=== PATIENT | female | born 1970 | race Caucasian/White ===

== ENCOUNTER 2017-05-03 21:28 | Emergency (ER) | payer MEDICAID ==
[~2017-05-03] VITALS: Ht 165.1 cm; Wt 104.3 kg
[2017-05-03 21:30] VITALS: BP_SYST 163
[2017-05-03] MEDS ORDERED: IPRATROPIUM/ALBUTEROL SULFATE 3 ML AMPUL.NEB INH ONE (21:45)
[2017-05-03] MEDS ORDERED: ONDANSETRON HCL 4 MG/2 ML VIAL IVP ONE (21:45)
[2017-05-03] MEDS ORDERED: NACL 0.9% 1,000 ML IV ONE (21:45)
[2017-05-03 22:28] LABS: BASOPHILS % (AUTO) 0.3 % (0.0-2.0); EOSINOPHILS # (AUTO) 0.2 K/uL (0.0-0.4); EOSINOPHILS % (AUTO) 1.5 % (0.0-4.0); HEMATOCRIT 36.6 % (36-48); HEMOGLOBIN 12.1 g/dL (12.0-16.0); LYMPHOCYTES # (AUTO) 1.7 K/uL (1.0-5.5); LYMPHOCYTES % (AUTO) 14.9 % (20.5-51.5); MEAN CORPUSCULAR HEMOGLOBIN 29 pg (27-31); MEAN CORPUSCULAR HGB CONC 33 % (32-36); MEAN CORPUSCULAR VOLUME 87 fL (79.0-98.0); MONOCYTES # (AUTO) 0.7 K/uL (0.0-1.0); MONOCYTES % (AUTO) 6.5 % (1.7-9.3); NEUTROPHILS # (AUTO) 8.6 K/uL (1.8-7.7); NEUTROPHILS % (AUTO) 76.8 % (40.0-70.0); PLATELET COUNT (AUTO) 188 K/uL (130-430); RED BLOOD CELL COUNT(AUTO) 4.23 MIL/uL (4.2-6.2); RED CELL DISTRIBUTION WIDTH 13.2 % (9.0-15.0); WHITE BLOOD COUNT (AUTO) 11.2 K/uL (4.8-10.8)
[2017-05-03 22:37] LABS: CALCIUM 9.1 mg/dL (8.4-11.0); CREATININE 0.98 mg/dL (0.55-1.30); POTASSIUM 3.5 mmol/L (3.5-5.1)
[2017-05-03 22:42] LABS: ALBUMIN 3.1 g/dL (3.4-4.8); TOTAL BILIRUBIN 0.4 mg/dL (0.0-1.0)
[2017-05-03] MEDS ORDERED: KETOROLAC TROMETHAMINE 30 MG VIAL IVP ONE (23:15)
[2017-05-03] MEDS ORDERED: AZITHROMYCIN 250 MG TABLET PO ONE (23:15)
[2017-05-04] VITALS: BP_SYST 148
== END 2017-05-04 | disposition home or self-care (01) ==
LOC: SED 21:28
DX: J18.9 Pneumonia, unspecified organism (principal); E86.0 Dehydration; R53.1 Weakness; Z87.891 Personal history of nicotine dependence
CPT/HCPCS: 36415; 71010; 80053; 83880; 85025; 93005; 94640; 96361; 96374; 96375; 99285; J1885; J2405; J7030; Q0144

== ENCOUNTER 2017-05-11 09:09 | Emergency (ER) | payer MEDICAID ==
[~2017-05-11] VITALS: Ht 165.1 cm; Wt 104.3 kg
[2017-05-11 09:09] VITALS: BP 157/111; PULSE 98; RESP 14; TEMP 97.7; O2SAT 96
--- NOTE | 2017-05-11 09:17 | NUR ---
Pt BIB BLS, placed to ER bed 04, to night monitor. Pt c/o Right rib pain and left chest pain that radiates to Left back. BBS rhonchi, no SOB. SPO2 96% RA. Pt seen in ER on 05/03/2017 and Dx Pneumonia. Pt currently taking Zithromax.
[2017-05-11 10:17] LABS: CREATININE 1.01 mg/dL (0.55-1.30); POTASSIUM 3.8 mmol/L (3.5-5.1)
[2017-05-11 10:19] LABS: PROTHROMBIN TIME 10.2 SECS (9.5-12.5)
[2017-05-11 10:20] LABS: BASOPHILS # (AUTO) 0.1 K/uL (0.0-0.2); BASOPHILS % (AUTO) 0.3 % (0.0-2.0); EOSINOPHILS # (AUTO) 0.2 K/uL (0.0-0.4); EOSINOPHILS % (AUTO) 1.1 % (0.0-4.0); HEMATOCRIT 38.9 % (36-48); HEMOGLOBIN 13.2 g/dL (12.0-16.0); LYMPHOCYTES # (AUTO) 1.6 K/uL (1.0-5.5); MEAN CORPUSCULAR HEMOGLOBIN 30 pg (27-31); MEAN CORPUSCULAR HGB CONC 34 % (32-36); MEAN CORPUSCULAR VOLUME 89 fL (79.0-98.0); MONOCYTES # (AUTO) 0.9 K/uL (0.0-1.0); MONOCYTES % (AUTO) 4.4 % (1.7-9.3); NEUTROPHILS # (AUTO) 17.4 K/uL (1.8-7.7); NEUTROPHILS % (AUTO) 86.2 % (40.0-70.0); PLATELET COUNT (AUTO) 410 K/uL (130-430); RED BLOOD CELL COUNT(AUTO) 4.39 MIL/uL (4.2-6.2); WHITE BLOOD COUNT (AUTO) 20.2 K/uL (4.8-10.8)
[2017-05-11 10:22] LABS: ALBUMIN 3.2 g/dL (3.4-4.8); TOTAL BILIRUBIN 0.3 mg/dL (0.0-1.0)
[2017-05-11] MEDS ORDERED: cefTRIAXone 1 GM in LIDOCAINE 1%, 20 ML MDV 2.1 ML IM ONE (11:00)
--- NOTE | 2017-05-11 11:00 | NUR ---
Recieved report from Morro DOTY. Will assume care at this time.
--- NOTE | 2017-05-11 11:09 | NUR ---
ED MD Elias at bedside reassessing patient.
[2017-05-11 11:18] VITALS: BP 143/98; PULSE 89; RESP 14; TEMP 97.9; O2SAT 97
--- NOTE | 2017-05-11 11:18 | NUR ---
Patient given written and verbal discharge instructions and verbalizes understanding. ER MD discussed with patient the results and treatment provided. Patient in stable condition. ID arm band removed. Rx of Levaquin and Albuterol given. Patient educated on pain management and to follow up with PMD. Pain Scale 2/10 tolerable for patient. Opportunity for questions provided and answered.
== END 2017-05-11 11:18 | disposition home or self-care (01) ==
LOC: SED 09:09
DX: J18.9 Pneumonia, unspecified organism (principal); Z87.891 Personal history of nicotine dependence
CPT/HCPCS: 36415; 71010; 80053; 82550; 83880; 84145; 84484; 84703; 85025; 85610; 85730; 93005; 96372; 99285; J0696; J2001

== ENCOUNTER 2017-05-17 09:49 | Emergency (ER) | payer MEDICAID ==
[~2017-05-17] VITALS: Ht 165.1 cm; Wt 104.3 kg
--- NOTE | 2017-05-17 10:23 | NUR ---
PILAR Whitman at bedside examining patient.
[2017-05-17 10:30] VITALS: BP_SYST 160
[2017-05-17] MEDS ORDERED: NACL 0.9% 1,000 ML IV ONE (10:30)
[2017-05-17] MEDS ORDERED: MECLIZINE HCL 25 MG TABLET (ANITVERT) PO ONE (10:30)
--- NOTE | 2017-05-17 10:30 | NUR ---
Patient to ER bed 3 to gown for evaluation. Side rails up.
--- NOTE | 2017-05-17 10:30 | NUR ---
Kervin claros in ED - 05/17/17 at 1046 by SDNURSD PILAR Whitman at bedside examining patient.
--- NOTE | 2017-05-17 10:37 | NUR ---
Pt AAOx4, able to verbalize needs. Pt c/o dizziness "on and off for a week" and "sees double today." Pt states no pain at this time. Pt states no passing out or known cause. No other complaints or injuries per pt or noted.
[2017-05-17 10:56] LABS: BILIRUBIN,URINE NEGATIVE (NEGATIVE); BLOOD, URINE 1+ (NEGATIVE); CLARITY/URINE HAZY (CLEAR); COLOR,URINE YELLOW (YELLOW); GLUCOSE,URINE NEGATIVE (NEGATIVE); KETONES,URINE NEGATIVE (NEGATIVE); LEUKOCYTE ESTERASE ,URINE NEGATIVE (NEGATIVE); NITRITE, URINE NEGATIVE (NEGATIVE); PROTEIN URINE NEGATIVE (NEGATIVE); UROBILINOGEN,URINE 0.2 (0.2-1.0)
[2017-05-17 10:58] LABS: BACTERIA,URINE MODERATE /HPF (None Seen)
[2017-05-17 10:59] LABS: MUCUS,URINE None Seen /LPF (None Seen)
[2017-05-17 11:18] LABS: BASOPHILS # (AUTO) 0.1 K/uL (0.0-0.2); BASOPHILS % (AUTO) 1.1 % (0.0-2.0); EOSINOPHILS # (AUTO) 0.2 K/uL (0.0-0.4); EOSINOPHILS % (AUTO) 2.6 % (0.0-4.0); HEMATOCRIT 38.4 % (36-48); HEMOGLOBIN 12.6 g/dL (12.0-16.0); LYMPHOCYTES # (AUTO) 1.6 K/uL (1.0-5.5); LYMPHOCYTES % (AUTO) 19.8 % (20.5-51.5); MEAN CORPUSCULAR HEMOGLOBIN 29 pg (27-31); MEAN CORPUSCULAR HGB CONC 33 % (32-36); MEAN CORPUSCULAR VOLUME 87 fL (79.0-98.0); MONOCYTES # (AUTO) 0.6 K/uL (0.0-1.0); MONOCYTES % (AUTO) 7.3 % (1.7-9.3); NEUTROPHILS # (AUTO) 5.8 K/uL (1.8-7.7); NEUTROPHILS % (AUTO) 69.2 % (40.0-70.0); PLATELET COUNT (AUTO) 431 K/uL (130-430); RED BLOOD CELL COUNT(AUTO) 4.39 MIL/uL (4.2-6.2); RED CELL DISTRIBUTION WIDTH 13.2 % (9.0-15.0); WHITE BLOOD COUNT (AUTO) 8.3 K/uL (4.8-10.8)
[2017-05-17 11:28] LABS: CALCIUM 9.6 mg/dL (8.4-11.0); CREATININE 0.95 mg/dL (0.55-1.30); POTASSIUM 4.4 mmol/L (3.5-5.1)
[2017-05-17 11:44] LABS: ALBUMIN 3.3 g/dL (3.4-4.8); THYROID STIMULATING HORMONE 12.62 uIu/mL (0.34-4.82); TOTAL BILIRUBIN 0.3 mg/dL (0.0-1.0)
--- NOTE | 2017-05-17 11:54 | NUR ---
Pt resting at this time, states her dizziness is improving, denies pain, VS stable.
--- NOTE | 2017-05-17 12:35 | NUR ---
Pt ambulate to toilet to void and back to bed, steady gait, no assistance. Pt states some dizziness.
--- NOTE | 2017-05-17 13:10 | NUR ---
Pt off unit to radiology.
--- NOTE | 2017-05-17 13:22 | NUR ---
Pt return to unit from radiology. Tolerated well.
[2017-05-17 14:00] VITALS: BP_SYST 143
--- NOTE | 2017-05-17 14:00 | NUR ---
Patient given written and verbal discharge instructions and verbalizes understanding. ER MD discussed with patient the results and treatment provided. Patient in stable condition. ID arm band removed. IV catheter removed intact and dressing applied, no active bleeding. No Rx given. Patient educated on pain management and to follow up with PMD. Pain Scale 0/10. Opportunity for questions provided and answered.
== END 2017-05-17 14:00 | disposition home or self-care (01) ==
LOC: SED 09:49
DX: E02 Subclinical iodine-deficiency hypothyroidism (principal)
CPT/HCPCS: 36415; 70450; 80053; 81000; 84439; 84443; 85025; 87086; 93005; 96360; 99285; J7030; J8597

== ENCOUNTER 2017-05-26 16:54 | Emergency (ER) | payer MEDICAID ==
[~2017-05-26] VITALS: Ht 165.1 cm; Wt 104.3 kg
[2017-05-26 17:10] VITALS: BP_SYST 126
[2017-05-26 17:45] LABS: BASOPHILS # (AUTO) 0.1 K/uL (0.0-0.2); BASOPHILS % (AUTO) 0.7 % (0.0-2.0); EOSINOPHILS # (AUTO) 0.3 K/uL (0.0-0.4); EOSINOPHILS % (AUTO) 2.7 % (0.0-4.0); HEMATOCRIT 44.2 % (36-48); HEMOGLOBIN 14.4 g/dL (12.0-16.0); LYMPHOCYTES # (AUTO) 2.9 K/uL (1.0-5.5); LYMPHOCYTES % (AUTO) 27.3 % (20.5-51.5); MEAN CORPUSCULAR HEMOGLOBIN 29 pg (27-31); MEAN CORPUSCULAR HGB CONC 33 % (32-36); MEAN CORPUSCULAR VOLUME 87 fL (79.0-98.0); MONOCYTES # (AUTO) 0.8 K/uL (0.0-1.0); MONOCYTES % (AUTO) 7.3 % (1.7-9.3); NEUTROPHILS # (AUTO) 6.4 K/uL (1.8-7.7); PLATELET COUNT (AUTO) 400 K/uL (130-430); RED BLOOD CELL COUNT(AUTO) 5.07 MIL/uL (4.2-6.2); RED CELL DISTRIBUTION WIDTH 13.3 % (9.0-15.0); WHITE BLOOD COUNT (AUTO) 10.5 K/uL (4.8-10.8)
[2017-05-26 17:59] LABS: CREATININE 0.92 mg/dL (0.55-1.30); POTASSIUM 3.2 mmol/L (3.5-5.1)
[2017-05-26] MEDS ORDERED: KETOROLAC TROMETHAMINE 30 MG VIAL IVP ONE (18:00)
[2017-05-26 18:04] LABS: ALBUMIN 3.9 g/dL (3.4-4.8); TOTAL BILIRUBIN 0.3 mg/dL (0.0-1.0)
[2017-05-26 18:10] LABS: BILIRUBIN,URINE NEGATIVE (NEGATIVE); BLOOD, URINE 1+ (NEGATIVE); COLOR,URINE YELLOW (YELLOW); GLUCOSE,URINE NEGATIVE (NEGATIVE); KETONES,URINE NEGATIVE (NEGATIVE); LEUKOCYTE ESTERASE ,URINE NEGATIVE (NEGATIVE); NITRITE, URINE NEGATIVE (NEGATIVE); PH,URINE 5.5 (5.0-8.0); PROTEIN URINE NEGATIVE (NEGATIVE); UROBILINOGEN,URINE 0.2 (0.2-1.0)
[2017-05-26 18:11] LABS: CLARITY/URINE HAZY (CLEAR)
[2017-05-26 18:16] LABS: BACTERIA,URINE MANY /HPF (None Seen); RBC,URINE 0-3 /HPF (0-3)
[2017-05-26 18:17] LABS: MUCUS,URINE None Seen /LPF (None Seen)
[2017-05-26] MEDS ORDERED: ONDANSETRON 4 MG ODT TAB PO ONE (19:30)
[2017-05-26] MEDS ORDERED: fentaNYL CITRATE/PF 100 MCG/2 ML AMP IM ONE (19:30)
[2017-05-26] MEDS ORDERED: fentaNYL CITRATE/PF 100 MCG/2 ML AMP IVP ONE (19:45)
[2017-05-26] MEDS ORDERED: ONDANSETRON HCL 4 MG/2 ML VIAL IVP ONE (19:45)
[2017-05-26] MEDS ORDERED: IOHEXOL 100 ML IV ONE (21:16)
[2017-05-26] MEDS ORDERED: NACL 0.9% 1,000 ML IV ONE (22:00)
[2017-05-26 22:42] VITALS: BP_SYST 132
== END 2017-05-26 22:42 | disposition home or self-care (01) ==
LOC: SED 16:54
DX: K80.20 Calculus of gallbladder without cholecystitis without obstruction (principal)
CPT/HCPCS: 36415; 74178; 76700; 80053; 81000; 81025; 83690; 85025; 87086; 96361; 96374; 96375; 99285; J1885; J2405; J3010; J7030; Q9967; Q0162

== ENCOUNTER 2017-07-04 13:45 | Emergency (ER) | payer MEDICAID ==
[~2017-07-04] VITALS: Ht 170.2 cm; Wt 77.1 kg
[2017-07-04 13:45] VITALS: BP_SYST 166
[2017-07-04] MEDS ORDERED: HYDROmorphone 1 MG INJ. 1 MG/ML AMPUL IM ONE (14:45)
[2017-07-04] MEDS ORDERED: ONDANSETRON HCL 4 MG/2 ML VIAL IVP ONE (14:45)
[2017-07-04 15:47] LABS: BASOPHILS # (AUTO) 0.1 K/uL (0.0-0.2); BASOPHILS % (AUTO) 0.6 % (0.0-2.0); EOSINOPHILS # (AUTO) 0.3 K/uL (0.0-0.4); HEMOGLOBIN 13.6 g/dL (12.0-16.0); LYMPHOCYTES # (AUTO) 2.5 K/uL (1.0-5.5); LYMPHOCYTES % (AUTO) 25.9 % (20.5-51.5); MEAN CORPUSCULAR HEMOGLOBIN 29 pg (27-31); MEAN CORPUSCULAR HGB CONC 34 % (32-36); MEAN CORPUSCULAR VOLUME 87 fL (79.0-98.0); MONOCYTES # (AUTO) 0.8 K/uL (0.0-1.0); MONOCYTES % (AUTO) 7.8 % (1.7-9.3); NEUTROPHILS % (AUTO) 62.7 % (40.0-70.0); PLATELET COUNT (AUTO) 270 K/uL (130-430); RED BLOOD CELL COUNT(AUTO) 4.61 MIL/uL (4.2-6.2); RED CELL DISTRIBUTION WIDTH 12.9 % (9.0-15.0); WHITE BLOOD COUNT (AUTO) 9.7 K/uL (4.8-10.8)
[2017-07-04 15:56] LABS: CALCIUM 8.9 mg/dL (8.4-11.0); POTASSIUM 3.8 mmol/L (3.5-5.1)
[2017-07-04 16:33] VITALS: BP_SYST 166
== END 2017-07-04 16:30 | disposition home or self-care (01) ==
LOC: SED 13:45
DX: K80.20 Calculus of gallbladder without cholecystitis without obstruction (principal); K80.50 Calculus of bile duct without cholangitis or cholecystitis without obstruction; Z90.710 Acquired absence of both cervix and uterus
CPT/HCPCS: 36415; 76700; 80048; 83690; 85025; 96372; 96374; 99285; J1170; J2405

== ENCOUNTER 2017-07-07 19:07 | Emergency (ER) | payer MEDICAID ==
[~2017-07-07] VITALS: Ht 165.1 cm; Wt 104.3 kg
[2017-07-07 19:10] VITALS: BP_SYST 139
--- NOTE | 2017-07-07 19:10 | NUR ---
Patient to ER bed 6 to gown for evaluation. Side rails up.
--- NOTE | 2017-07-07 19:30 | NUR ---
pt in bed 6 with c/o upper abddominal pain with nausea,hx of Gallstones. Dr medina aware.
[2017-07-07] MEDS ORDERED: NACL 0.9% 1,000 ML IV ONE (19:53)
[2017-07-07] MEDS ORDERED: MORPHINE 4 MG/ML INJ. SYRINGE IVP ONE (20:00)
[2017-07-07] MEDS ORDERED: ONDANSETRON HCL 4 MG/2 ML VIAL IVP ONE (20:00)
[2017-07-07] MEDS ORDERED: DIPHENHYDRAMINE INJ 50 MG/ML VIAL IVP ONE ×2 (20:00→23:00)
--- NOTE | 2017-07-07 20:00 | NUR ---
ER at bedside examining patient.
[2017-07-07 20:22] LABS: BASOPHILS # (AUTO) 0.1 K/uL (0.0-0.2); BASOPHILS % (AUTO) 0.6 % (0.0-2.0); EOSINOPHILS # (AUTO) 0.3 K/uL (0.0-0.4); EOSINOPHILS % (AUTO) 3.1 % (0.0-4.0); HEMOGLOBIN 13.6 g/dL (12.0-16.0); LYMPHOCYTES # (AUTO) 2.8 K/uL (1.0-5.5); LYMPHOCYTES % (AUTO) 32.3 % (20.5-51.5); MEAN CORPUSCULAR HEMOGLOBIN 29 pg (27-31); MEAN CORPUSCULAR HGB CONC 33 % (32-36); MEAN CORPUSCULAR VOLUME 88 fL (79.0-98.0); MONOCYTES # (AUTO) 0.8 K/uL (0.0-1.0); MONOCYTES % (AUTO) 8.8 % (1.7-9.3); NEUTROPHILS # (AUTO) 4.7 K/uL (1.8-7.7); NEUTROPHILS % (AUTO) 55.2 % (40.0-70.0); PLATELET COUNT (AUTO) 266 K/uL (130-430); RED BLOOD CELL COUNT(AUTO) 4.67 MIL/uL (4.2-6.2); WHITE BLOOD COUNT (AUTO) 8.7 K/uL (4.8-10.8)
[2017-07-07 20:36] LABS: CALCIUM 8.9 mg/dL (8.4-11.0); CREATININE 0.84 mg/dL (0.55-1.30); POTASSIUM 3.5 mmol/L (3.5-5.1)
[2017-07-07 20:40] LABS: ALBUMIN 3.5 g/dL (3.4-4.8); TOTAL BILIRUBIN 0.2 mg/dL (0.0-1.0)
[2017-07-07 21:06] LABS: BILIRUBIN,URINE NEGATIVE (NEGATIVE); BLOOD, URINE 2+ (NEGATIVE); CLARITY/URINE SL HAZY (CLEAR); COLOR,URINE YELLOW (YELLOW); GLUCOSE,URINE NEGATIVE (NEGATIVE); KETONES,URINE NEGATIVE (NEGATIVE); LEUKOCYTE ESTERASE ,URINE NEGATIVE (NEGATIVE); NITRITE, URINE NEGATIVE (NEGATIVE); PROTEIN URINE 1+ (NEGATIVE); UROBILINOGEN,URINE 0.2 (0.2-1.0)
--- NOTE | 2017-07-07 21:16 | NUR ---
# 22 gauge angiocath placed to left forearm. Use of asceptic technique. Opsite placed over site. Blood return noted. Blood for lab drawn from site. Flushed with 10 cc of normal saline. No evidence of infiltration noted. Patient tolerated well.
[2017-07-07 21:29] LABS: BACTERIA,URINE MODERATE /HPF (None Seen); WBC,URINE 0-3 /HPF (0-3)
[2017-07-07 21:30] LABS: MUCUS,URINE None Seen /LPF (None Seen)
[2017-07-07] MEDS ORDERED: KETOROLAC TROMETHAMINE 30 MG VIAL IVP ONE (21:30)
[2017-07-07] MEDS ORDERED: MORPHINE SULFATE 10 MG/ML VIAL IVP ONE (23:00)
--- NOTE | 2017-07-07 23:00 | NUR ---
MEDICATIONS GIVEN PER ORDERS, TOLERATED WELL.
[2017-07-08] MEDS ORDERED: ONDANSETRON HCL 4 MG/2 ML VIAL IVP ONE (00:15)
[2017-07-08] MEDS ORDERED: MORPHINE 4 MG/ML INJ. SYRINGE IVP ONE (00:15)
--- NOTE | 2017-07-08 00:30 | NUR ---
ER at bedside examining patient.
--- NOTE | 2017-07-08 01:15 | NUR ---
Patient given written and verbal discharge instructions and verbalizes understanding. ER MD discussed with patient the results and treatment provided. Patient in stable condition. ID arm band removed. IV catheter removed intact and dressing applied, no active bleeding. Rx of NORCO given. Patient educated on pain management and to follow up with PMD. Pain Scale 0/10. Opportunity for questions provided and answered.
[2017-07-08 01:28] VITALS: BP_SYST 117
== END 2017-07-08 01:28 | disposition home or self-care (01) ==
LOC: SED 19:07
DX: K80.20 Calculus of gallbladder without cholecystitis without obstruction (principal); F32.9 Major depressive disorder, single episode, unspecified; Z90.710 Acquired absence of both cervix and uterus; Z98.51 Tubal ligation status
CPT/HCPCS: 36415; 74176; 80053; 81000; 81025; 83690; 85025; 87086; 96361; 96374; 96375; 96376; 99285; J1200; J1885; J2270 ×3; J2405 ×2; J7030

== ENCOUNTER 2017-07-24 12:41 | Inpatient (IN) | payer MEDICAID ==
[~2017-07-24] VITALS: Ht 165.1 cm; Wt 104.8 kg
[2017-07-24 12:44] VITALS: BP_SYST 182
--- NOTE | 2017-07-24 12:54 | NUR ---
PT PLACED IN BED 6, REPORT ENDORSED TO CRISTEL DOTY
--- NOTE | 2017-07-24 12:56 | NUR ---
Dr. Yang at bedside for evaluation
--- NOTE | 2017-07-24 13:00 | NUR ---
PT c/o constant sharp right upper abd pain radiating to back since May. +nausea. Hx of gallstones, 4th visit to ED since. Unable to tolerate food, can't sleep, can't drive, can't make food for her children because the pain is persistant and unbearble.
[2017-07-24 13:14] LABS: BILIRUBIN,URINE NEGATIVE (NEGATIVE); BLOOD, URINE 1+ (NEGATIVE); CLARITY/URINE CLEAR (CLEAR); COLOR,URINE YELLOW (YELLOW); GLUCOSE,URINE NEGATIVE (NEGATIVE); KETONES,URINE NEGATIVE (NEGATIVE); LEUKOCYTE ESTERASE ,URINE NEGATIVE (NEGATIVE); NITRITE, URINE NEGATIVE (NEGATIVE); PROTEIN URINE NEGATIVE (NEGATIVE); UROBILINOGEN,URINE 0.2 (0.2-1.0)
[2017-07-24] MEDS ORDERED: MORPHINE 4 MG/ML INJ. SYRINGE IVP ONE ×5 (13:15→15:15)
[2017-07-24] MEDS ORDERED: ONDANSETRON HCL 4 MG/2 ML VIAL IVP ONE (13:15)
[2017-07-24 13:16] LABS: BASOPHILS # (AUTO) 0.1 K/uL (0.0-0.2); BASOPHILS % (AUTO) 0.5 % (0.0-2.0); EOSINOPHILS # (AUTO) 0.2 K/uL (0.0-0.4); HEMATOCRIT 42.4 % (36-48); HEMOGLOBIN 13.9 g/dL (12.0-16.0); LYMPHOCYTES # (AUTO) 2.2 K/uL (1.0-5.5); LYMPHOCYTES % (AUTO) 20.6 % (20.5-51.5); MEAN CORPUSCULAR HEMOGLOBIN 29 pg (27-31); MEAN CORPUSCULAR HGB CONC 33 % (32-36); MEAN CORPUSCULAR VOLUME 88 fL (79.0-98.0); MONOCYTES # (AUTO) 0.5 K/uL (0.0-1.0); MONOCYTES % (AUTO) 4.5 % (1.7-9.3); NEUTROPHILS # (AUTO) 7.9 K/uL (1.8-7.7); NEUTROPHILS % (AUTO) 72.4 % (40.0-70.0); PLATELET COUNT (AUTO) 283 K/uL (130-430); RED BLOOD CELL COUNT(AUTO) 4.83 MIL/uL (4.2-6.2); RED CELL DISTRIBUTION WIDTH 12.7 % (9.0-15.0); WHITE BLOOD COUNT (AUTO) 10.9 K/uL (4.8-10.8)
--- NOTE | 2017-07-24 13:22 | NUR ---
Medicated for pain per MD orders. Pt placed on sp02 monitor. Ultra sound at bedside.
[2017-07-24 13:24] LABS: BACTERIA,URINE FEW /HPF (None Seen); MUCUS,URINE 1+ /LPF (None Seen); WBC,URINE 0-3 /HPF (0-3)
[2017-07-24 13:31] LABS: CALCIUM 8.9 mg/dL (8.4-11.0); POTASSIUM 3.6 mmol/L (3.5-5.1)
[2017-07-24 13:36] LABS: ALBUMIN 3.9 g/dL (3.4-4.8); PROTHROMBIN TIME 10.4 SECS (9.5-12.5); TOTAL BILIRUBIN 0.2 mg/dL (0.0-1.0)
[2017-07-24] MEDS ORDERED: MORPHINE SULFATE 10 MG/ML VIAL ONE ×2 (14:19→15:19)
[2017-07-24] MEDS ORDERED: KETOROLAC TROMETHAMINE 30 MG VIAL IVP ONE (15:00)
--- NOTE | 2017-07-24 15:10 | NUR ---
TELEPHONE ORDER RECEIVED FROM DR. MYLA ACEVEDO OF [facility]. MED/SURG STATUS.
[2017-07-24] MEDS ORDERED: VANCOMYCIN HCL 1 GM/NS PREMIX 250 ML IV ONE (15:30)
--- NOTE | 2017-07-24 15:44 | NUR ---
Admission Note Received patient from ER with diagnosis of cholecystitis. Initial Plan of Care discussed-patient verbalized understanding. . Oriented to room, call light, pain management and safety.
[2017-07-24 15:50] VITALS: BP_SYST 167
--- NOTE | 2017-07-24 15:51 | NUR ---
Surgery consult called: for Dr. Abbasi, regarding cholecystitis, ordered by Dr. Lombardo, spoke with Sintia.
--- NOTE | 2017-07-24 15:54 | NUR ---
Bedside report given to valentine brunner. patient stable condition. still complained of abdominal pain medicated recently. belongings sent with patient.
[2017-07-24] MEDS ORDERED: HYDROmorphone 2 MG/ML VIAL IVP PRN (16:15)
--- NOTE | 2017-07-24 16:42 | NUR ---
ADMIT RECEIVED PT AA0X4 IN NO ACUTE DISTRESS. STATES PAIN IS 7/10. SPOKE WITH DR. PARKS VIA TELEPHONE AND RECEIVED ORDERS FOR PAIN MEDICATION AND PRE-OP TESTS/LAB WORK. PHARMACY CALLED TO VERIFY MEDICATION. WILL ADMINISTER MEDS ONCE VERIFIED BY PHARMACY.
[2017-07-24] MEDS ORDERED: HYDR-2472 PO (17:03)
[2017-07-24] MEDS ORDERED: LEVO200T8 PO (17:03)
[2017-07-24] MEDS ORDERED: EST1 PO (17:03)
[2017-07-24] MEDS ORDERED: PRO20 PO (17:03)
[2017-07-24] MEDS ORDERED: ENALAPRILAT DIHYDRATE 1.25 MG/ML VIAL IVP PRN (17:15)
[2017-07-24] MEDS ORDERED: ONDANSETRON HCL 4 MG/2 ML VIAL IVP PRN (17:15)
[2017-07-24] MEDS ORDERED: ACETAMINOPHEN 325 MG TABLET PO PRN (17:15)
[2017-07-24] MEDS ORDERED: cloNIDine HCL 0.1 MG TABLET PO PRN (17:15)
--- NOTE | 2017-07-24 19:50 | NUR ---
ROUNDS PATIENT AWAKE, WATCHING TV, VITALS STABLE, NO PAIN AT THIS TIME. ASSESSMENT DONE AND DOCUMENTED. SEE FLOWSHEET. NEEDS ATTENDED TO. SAFETY MEASURES IN PLACED. BED IN LOW AND LOCKED POSITION. CALL LIGHT PLACED WITHIN REACH.
--- NOTE | 2017-07-24 19:57 | NUR ---
CLOSING NOTES PT IN BED A/OX4. PT IS ON RA TOLERATING WELL. PT STATES PAIN IS 5/10 AT THE MOMENT. PT STATES SHE WILL ASK FOR PAIN MEDICATION WHEN SHE NEEDS IT. SAFETY MEASURES IN PLACE, BED TO LOWEST POSITION, SIDE RAILS UP X3, CALL LIGHT WITHIN REACH. ENDORSED TO SASH MAKER.
[2017-07-24 20:00] VITALS: BP_SYST 145
[2017-07-24] MEDS: HYDROmorphone 1 MG INJ. 1 MG/ML AMPUL IVP PRN (20:52)
[2017-07-24] MEDS: D5NS 1,000 ML IV SCH (22:11)
[2017-07-24] MEDS ORDERED: HYDROmorphone 1 MG INJ. 1 MG/ML AMPUL IVP ONE (22:30)
[2017-07-25] VITALS: BP_SYST 136
--- NOTE | 2017-07-25 00:10 | NUR ---
PATIENT RESTING: Patient resting quietly. No acute distress noted. Vital signs within normal range.
[2017-07-25] MEDS: HYDROmorphone 2 MG/ML VIAL IVP PRN ×4 (02:43→21:07)
--- NOTE | 2017-07-25 04:15 | NUR ---
PATIENT RESTING: Patient resting quietly. No acute distress noted. Vital signs within normal range.
[2017-07-25] MEDS: LEVOTHYROXINE SODIUM 0.1 MG TABLET PO SCH ×2 (06:00→17:17)
--- NOTE | 2017-07-25 06:50 | NUR ---
CLOSING NOTES PATIENT AWAKE, VITALS STABLE, PAIN MEDICATION JUST GIVEN FOR ABDOMINAL VENTURA 8/10 PAIN SCALE. ALL NEEDS ATTENDED TO. CALL LIGHT PLACED WITHIN REACH.
[2017-07-25 06:58] LABS: BASOPHILS # (AUTO) 0.1 K/uL (0.0-0.2); BASOPHILS % (AUTO) 0.8 % (0.0-2.0); EOSINOPHILS # (AUTO) 0.3 K/uL (0.0-0.4); EOSINOPHILS % (AUTO) 3.3 % (0.0-4.0); HEMATOCRIT 40.5 % (36-48); HEMOGLOBIN 13.5 g/dL (12.0-16.0); LYMPHOCYTES # (AUTO) 2.8 K/uL (1.0-5.5); LYMPHOCYTES % (AUTO) 35.2 % (20.5-51.5); MEAN CORPUSCULAR HEMOGLOBIN 29 pg (27-31); MEAN CORPUSCULAR HGB CONC 33 % (32-36); MEAN CORPUSCULAR VOLUME 88 fL (79.0-98.0); MONOCYTES # (AUTO) 0.9 K/uL (0.0-1.0); MONOCYTES % (AUTO) 11.4 % (1.7-9.3); NEUTROPHILS # (AUTO) 3.9 K/uL (1.8-7.7); NEUTROPHILS % (AUTO) 49.3 % (40.0-70.0); PLATELET COUNT (AUTO) 278 K/uL (130-430); RED BLOOD CELL COUNT(AUTO) 4.63 MIL/uL (4.2-6.2); RED CELL DISTRIBUTION WIDTH 12.6 % (9.0-15.0)
[2017-07-25 07:12] LABS: CALCIUM 8.7 mg/dL (8.4-11.0); CREATININE 0.9 mg/dL (0.55-1.30); POTASSIUM 3.9 mmol/L (3.5-5.1)
[2017-07-25 07:20] LABS: ALBUMIN 3.5 g/dL (3.4-4.8); TOTAL BILIRUBIN 0.3 mg/dL (0.0-1.0)
--- NOTE | 2017-07-25 07:45 | NUR ---
OPENING NOTE PT IN BED A/OX4. PT ON RA TOLERATING WELL. PT REMAINS NPO. PT STATES SHE WASN'T ABLE TO SLEEP LAST NIGHT. SAFETY MEASURES IN PLACE, BED TO LOWEST POSITION, SIDE RAILS UP X3, CALL LIGHT WITHIN REACH.
[2017-07-25 08:00] VITALS: BP_SYST 155
[2017-07-25] MEDS ORDERED: DIPHENHYDRAMINE INJ 50 MG/ML VIAL IVP PRN (09:15)
[2017-07-25] MEDS ORDERED: LORazepam 2 MG/ML VIAL ONE (10:38)
[2017-07-25] MEDS: LORazepam 2 MG/ML VIAL IVP PRN (10:45)
[2017-07-25] MEDS: FLUoxetine HCL 20 MG CAPSULE (PROzac) PO SCH (10:49)
[2017-07-25] MEDS: ESTRADIOL 1 MG TABLET (ESTRACE) PO SCH (10:49)
--- NOTE | 2017-07-25 11:35 | NUR ---
IV PT C/O PAIN TO LT FA IV. IVF STOPPED AND SL REMOVED. NEW #22g IV PLACED TO RT AC WITH GOOD BLOOD RETURN AND FLUSHING WELL. IV INFUSION RESTARTED TO RT IV SITE.
--- NOTE | 2017-07-25 12:30 | NUR ---
VS PT STATED EARLIER THAT SHE DID NOT GET ANY SLEEP LAST NIGHT AT THAT SHE JUST WANTS TO REST. FINALLY ASLEEP AFTER BEING GIVEN ATIVAN AND BENADRYL. VS NOT TAKEN. PT STABLE AND IN NO DISTRESS.
[2017-07-25 16:00] VITALS: BP_SYST 145
--- NOTE | 2017-07-25 18:09 | NUR ---
ROUNDS PT C/O BEING HUNGRY AND WANTING TO AT LEAST HAVE CLEAR LIQUIDS SINCE SHE WILL MOST LIKELY NOT HAVE SURGERY TONIGHT. CALL PLACED TO DR. PARKS VIA EXCHANGE. WILL WAIT FOR RETURN CALL. Addendum: 07/25/17 at 1845 by Carol Vela RN SPOKE WITH DR. PARKS. OK FOR PT TO HAVE CLEAR LIQUIDS. PT UPDATED
--- NOTE | 2017-07-25 18:45 | NUR ---
CLOSING NOTE PT SITTING UP IN BED EATING JELLO IN NO ACUTE DISTRESS. IVF INFUSING WELL INTO RT AC, NO S/S OF INFILTRATION NOTED. PT COMPLAINING ABOUT THE VISITORS OF THE PATIENT IN BED A, STATING THERE HAVE BEEN AT LEAST 3 VISITORS IN THE ROOM ALL DAY AND SHE HAS NOT BEEN ABLE TO REST. PT ALSO STATED THAT THEY VISITORS FOR BED A WERE THERE UNTIL AFTER MIDNIGHT LAST NIGHT, TALKING AND WATCHING TV AND THEREFORE SHE WAS NOT ABLE TO SLEEP. DISCUSSED THIS WITH CHARGE NURSE NELLY. PER NELLY, PT CAN BE MOVED TO ROOM 107B. PT UPDATED ON PLAN. WILL ENDORSE TO RESTAURANT MGR NURSE. SAFETY MEASURES IN PLACE WITH CALL LIGHT WITHIN REACH. PT ENCOURAGED TO USE CALL LIGHT FOR ASSISTANCE. PT VERBALIZED UNDERSTANDING.
--- NOTE | 2017-07-25 19:45 | NUR ---
STARTING NOTE TRAFFIC REPORTER Patient was moved to room 107B. The patient is much more at peace and happier in that room. She is resting in bed and requested pain medication for right flank pain. No other distress noted. The nurse will administer Dilaudid 2 mg PRN per MD order. IVF running smoothly. Fall precautions in place.
[2017-07-25 20:00] VITALS: BP_SYST 161
[2017-07-25] MEDS: D5NS 1,000 ML IV SCH ×2 (21:17→23:15)
--- NOTE | 2017-07-25 22:50 | NUR ---
ROUNDS Patient in bed resting. No pain or distress noted. Will continue to monitor.
[2017-07-26] VITALS (7 sets, daily range): BP systolic 138–162
--- NOTE | 2017-07-26 00:52 | NUR ---
ROUNDS Patient in bed sleeping. She called for pain medication about 15 minutes ago, but when the nurse went to access her pain, she was sleeping deeply. The nurse did not administer any pain medication at this time. Will continue monitoring.
[2017-07-26] MEDS: HYDROmorphone 2 MG/ML VIAL IVP PRN ×5 (02:21→23:53)
--- NOTE | 2017-07-26 02:25 | NUR ---
PAIN MEDICATION REQUESTED Patient called the nurse and requested pain medication Dilaudid 2 mg PRN. VS within normal limits, oxygen saturation is 98%. Patient walked to the bathroom couple of times independently, gait is steady. Will continue to monitor.
[2017-07-26] MEDS: LORazepam 2 MG/ML VIAL IVP PRN ×3 (03:36→22:20)
--- NOTE | 2017-07-26 03:40 | NUR ---
ATIVAN REQUESTED Patient called the nurse and requested Ativan for anxiety. The nurse will administer the medication. No pain noted. Fall precautions in place.
--- NOTE | 2017-07-26 05:26 | NUR ---
ROUNDS Patient in bed sleeping. No pain or distress noted. Fall precautions in place.
[2017-07-26] MEDS: LEVOTHYROXINE SODIUM 0.1 MG TABLET PO SCH (06:46)
[2017-07-26] MEDS: D5NS 1,000 ML IV SCH ×3 (07:02→23:57)
--- NOTE | 2017-07-26 07:29 | NUR ---
CLOSING NOTE Patient in bed sleeping. She requested Dilaudid 2 mg around 06:45 for right flank pain. IVF running smoothly. Addendum: 07/26/17 at 0747 by Brandi Jones RN Patient is on room air, oxygen saturation is 98-100%. HIDA scan has been done yesterday during the day, Dr. Abbasi is aware of that, but he has not seen the patient yet. The patient is on clear liquid diet, but she decided to be NPO after midnight, so if Dr. Abbasi decides to do any procedure or surgery, she is prepared (she would really like the pain and her health problem resolved EMILY per her own words). Report has been given to the day shift nurse and she is aware of all the facts. Fall precautions in place, patient's needs have been met throughout the shift.
--- NOTE | 2017-07-26 07:40 | NUR ---
AM NOTES Patient in bed awake eating breakfast. denies any shortness of breath/ chest pain. patient instructed to use call light. safety precautions observed, bed in lowest position. will monitor.
--- NOTE | 2017-07-26 09:27 | NUR ---
dr gaston was called at this time. was not able to speak to anyone. will call again at a later time.
--- NOTE | 2017-07-26 09:32 | NUR ---
Spoke to Dr. Abbasi RE: Pt is asking if she gonna have surgery and what time MD will come to see her. Per MD he still waiting for hida scan results.
--- NOTE | 2017-07-26 10:02 | NUR ---
SURGICAL CONSULT DR PARKS WAS CALLED, RE: JELANI SCAN RESULTS. LEFT A VOICE MESSAGE AND SPOKE TO Addendum: 07/26/17 at 1013 by Lakesha Hopson MT/ SPOKE TO MARTY
[2017-07-26] MEDS: FLUoxetine HCL 20 MG CAPSULE (PROzac) PO SCH (10:10)
[2017-07-26] MEDS: ESTRADIOL 1 MG TABLET (ESTRACE) PO SCH (10:13)
--- NOTE | 2017-07-26 11:00 | NUR ---
SEEN BY DR. PARKS AT BEDSIDE. PER PT WILL HAVE SURGERY AT 1300 TODAY. PT SIGNED INFORMED CONSENT. PER PT DOES NOT NEED TYPE AND CROSS AND PT/INR.
[2017-07-26 11:24] LABS: BASOPHILS # (AUTO) 0.1 K/uL (0.0-0.2); BASOPHILS % (AUTO) 0.7 % (0.0-2.0); EOSINOPHILS # (AUTO) 0.2 K/uL (0.0-0.4); HEMATOCRIT 39.9 % (36-48); HEMOGLOBIN 13.3 g/dL (12.0-16.0); LYMPHOCYTES % (AUTO) 26.1 % (20.5-51.5); MEAN CORPUSCULAR HEMOGLOBIN 29 pg (27-31); MEAN CORPUSCULAR HGB CONC 33 % (32-36); MEAN CORPUSCULAR VOLUME 88 fL (79.0-98.0); MONOCYTES # (AUTO) 0.9 K/uL (0.0-1.0); NEUTROPHILS # (AUTO) 4.6 K/uL (1.8-7.7); NEUTROPHILS % (AUTO) 59.2 % (40.0-70.0); PLATELET COUNT (AUTO) 248 K/uL (130-430); RED BLOOD CELL COUNT(AUTO) 4.54 MIL/uL (4.2-6.2); RED CELL DISTRIBUTION WIDTH 12.5 % (9.0-15.0); WHITE BLOOD COUNT (AUTO) 7.8 K/uL (4.8-10.8)
[2017-07-26 11:28] LABS: CREATININE 0.77 mg/dL (0.55-1.30); POTASSIUM 3.8 mmol/L (3.5-5.1)
[2017-07-26 11:34] LABS: ALBUMIN 3.5 g/dL (3.4-4.8); TOTAL BILIRUBIN 0.2 mg/dL (0.0-1.0)
--- NOTE | 2017-07-26 12:07 | NUR ---
CHG bath completed by patient, as well as a gown change. Family at bedside at this time.
--- NOTE | 2017-07-26 13:58 | NUR ---
Pt went to surgery at this time.
[2017-07-26] MEDS ORDERED: LR 1,000 ML IV SCH (14:24)
[2017-07-26] MEDS ORDERED: ONDANSETRON HCL 4 MG/2 ML VIAL IVP PRN (14:30)
[2017-07-26] MEDS ORDERED: KETOROLAC TROMETHAMINE 30 MG VIAL IVP PRN (14:30)
[2017-07-26] MEDS ORDERED: HYDROmorphone 2 MG/ML VIAL IVP PRN ×2 (14:30)
[2017-07-26] MEDS ORDERED: HYDROmorphone 1 MG INJ. 1 MG/ML AMPUL IVP PRN (14:30)
[2017-07-26] MEDS ORDERED: HYDROmorphone 1 MG INJ. 1 MG/ML AMPUL ONE ×2 (15:17→15:45)
--- NOTE | 2017-07-26 16:20 | NUR ---
Received patient from surgery status post lap cholecystectomy. 4 dressings dry and intact. Patient on 2 liters O2 on nasal canula. patient lethargic, family at bedside, vital signs stable.
--- NOTE | 2017-07-26 17:00 | NUR ---
PT SLEEPING AT THIS TIME. FAMILY AT BEDSIDE, V/S STABLE. BREATHING EVEN AND UNLABORED. NO DISTRESS NOTED.
--- NOTE | 2017-07-26 17:43 | NUR ---
PT AWAKE NOW, ENCOURAGE DEEP BREATHING AND COUGHING EXERCISE. INSTRUCTED ON HOW TO USE INCENTIVE SPIROMETER. ENCOURAGE TO AMBULATE. PT VEBALIZE UNDERSTANDING WILL MONITOR.
--- NOTE | 2017-07-26 18:48 | NUR ---
NOTES-AMBULATE TO THE BATHROOM AND VOIDED. PT'S WALK WITH , COMPLAIN OF PAIN AND NAUSEA AFTER WALKING MEDICATED WITH ZOFRAN AND DILAUDID. NEEDS ATTENDED. WILL ENDORSE
--- NOTE | 2017-07-26 19:55 | NUR ---
Initial Notes Patient alert and oriented, able to make needs known. Patient denies pain at this time. No SOB noted. IV site patent, flushes well. Goal of pain management, GI stability and safety this shift. Call light within reach. Will continue to monitor.
--- NOTE | 2017-07-26 22:56 | NUR ---
paged paged for Dr Best, dialed . picked up call himself.
--- NOTE | 2017-07-26 23:00 | NUR ---
Notes Spoke to on the phone, informed MD that IV fluids D5 NS is not available on the unit or in ICU. Per MD, change IV fluid to NS for now. Order noted.
[2017-07-26] MEDS: HYDROmorphone 1 MG INJ. 1 MG/ML AMPUL IVP PRN (23:22)
[2017-07-26] MEDS: NACL 0.9% 1,000 ML IV SCH (23:57)
[2017-07-27 01:19] VITALS: BP_SYST 152
[2017-07-27] MEDS: HYDROmorphone 2 MG/ML VIAL IVP PRN ×4 (03:43→17:15)
[2017-07-27] MEDS: LORazepam 2 MG/ML VIAL IVP PRN ×2 (04:55→10:27)
[2017-07-27] MEDS: D5NS 1,000 ML IV SCH ×2 (05:15→14:54)
[2017-07-27] MEDS: LEVOTHYROXINE SODIUM 0.1 MG TABLET PO SCH (05:28)
--- NOTE | 2017-07-27 06:32 | NUR ---
Closing Notes Patient denies pain at this time. No SOB noted. IV site patent, flushes well. Recently medicated with Ativan per request. Goal of pain management, GI stability and safety met. Call light within reach. Will continue to monitor.
[2017-07-27 06:43] LABS: BASOPHILS % (AUTO) 0.2 % (0.0-2.0); HEMATOCRIT 38.4 % (36-48); HEMOGLOBIN 13.1 g/dL (12.0-16.0); LYMPHOCYTES # (AUTO) 1.2 K/uL (1.0-5.5); LYMPHOCYTES % (AUTO) 6.6 % (20.5-51.5); MEAN CORPUSCULAR HEMOGLOBIN 30 pg (27-31); MEAN CORPUSCULAR HGB CONC 34 % (32-36); MEAN CORPUSCULAR VOLUME 87 fL (79.0-98.0); MONOCYTES % (AUTO) 5.3 % (1.7-9.3); NEUTROPHILS # (AUTO) 16.3 K/uL (1.8-7.7); NEUTROPHILS % (AUTO) 87.9 % (40.0-70.0); PLATELET COUNT (AUTO) 309 K/uL (130-430); RED BLOOD CELL COUNT(AUTO) 4.41 MIL/uL (4.2-6.2); RED CELL DISTRIBUTION WIDTH 12.6 % (9.0-15.0); WHITE BLOOD COUNT (AUTO) 18.5 K/uL (4.8-10.8)
[2017-07-27 07:20] LABS: ALBUMIN 3.5 g/dL (3.4-4.8); CALCIUM 9.1 mg/dL (8.4-11.0); CREATININE 0.81 mg/dL (0.55-1.30); TOTAL BILIRUBIN 0.4 mg/dL (0.0-1.0)
--- NOTE | 2017-07-27 07:24 | NUR ---
AM NOTES patient in bed awake, alert and oriented. ambulate to the bathroom with minimal assist. pain controlled at this time. not passing gas yet. enc. to use incentive spirometer and ambulate more. call light within reach. enc. to call for help at all time. will monitor.
[2017-07-27 08:00] VITALS: BP_SYST 156
[2017-07-27] MEDS: ESTRADIOL 1 MG TABLET (ESTRACE) PO SCH (08:20)
[2017-07-27] MEDS: FLUoxetine HCL 20 MG CAPSULE (PROzac) PO SCH (08:21)
--- NOTE | 2017-07-27 08:55 | NUR ---
rounds dr gaston saw patient at bedside, made aware of patient white blood cell count, stated it was okay. stated it is okay for patient to be dicharged today. Patient to follow up in one week with dr gaston. Addendum: 07/27/17 at 1539 by Lois Wasserman RN dr gaston also instructed patient on diet.
--- NOTE | 2017-07-27 11:29 | NUR ---
AMBULATE PATIENT WITH HIS .
[2017-07-27 12:11] VITALS: BP_SYST 159
[2017-07-27] MEDS: NACL 0.9% 1,000 ML IV SCH (13:23)
--- NOTE | 2017-07-27 14:32 | NUR ---
Patient in bed awake alert, denies any chest pain/ shortness of breath. in no distress. encouraged to use call light. safety precautions observed. will monitor.
[2017-07-27 16:00] VITALS: BP_SYST 143
[2017-07-27] MEDS ORDERED: DOCU-144 PO (16:16)
[2017-07-27] MEDS ORDERED: HYDR-4100 PO (16:16)
[2017-07-27] MEDS ORDERED: ONDA4TAB5 PO (16:16)
--- NOTE | 2017-07-27 17:20 | NUR ---
D/C HOME ACCOMPANIED BY . TOLERATING DIET. COMPLAIN OF PAIN, WAS MEDICATED BEFORE DISCHARGE. AMBULATE WITH STEADY GAIT. D/C INSTRUCTION AND PRESCRIPTION GIVEN AND DISCUSSED WITH PATIENT. PATIENT VERBALIZE UNDERSTANDING. IVL AND ARM BAND REMOVED. INSTRUCTED ON DIET AND FOLLOW UP WITH DOCTOR.
== END 2017-07-27 17:20 | disposition home or self-care (01) | DRG 263 ==
LOC: SED 12:41 → SMU 15:10
PROVIDERS: ADMIT Internal Medicine Hospice and Palliative Medicine; ATTEND Internal Medicine Hospice and Palliative Medicine
PROC: 0FT44ZZ Resection of Gallbladder, Percutaneous Endoscopic Approach (ICD-10-PCS; principal; 2017-07-26 14:00)
DX: K80.00 Calculus of gallbladder with acute cholecystitis without obstruction (principal); N17.0 Acute kidney failure with tubular necrosis; F32.9 Major depressive disorder, single episode, unspecified; E03.9 Hypothyroidism, unspecified; E66.9 Obesity, unspecified; E78.5 Hyperlipidemia, unspecified; Z90.710 Acquired absence of both cervix and uterus; Z68.38 Body mass index [BMI] 38.0-38.9, adult
CPT/HCPCS: 36415; 71010; 76700-TC; 78226; 80053; 81000-TC; 83690-TC; 84484; 84703; 85025; 85610-TC; 85730-TC; 88304; 93005; 94010; 96361; 96374; 96375; 96376; 99285; A9537; C1727; J1170; J1200; J2060; J2270; J2405; J3370; J7030; J7042

== ENCOUNTER 2017-07-28 09:29 | Inpatient (IN) | payer MEDICAID ==
[~2017-07-28] VITALS: Ht 165.1 cm; Wt 104.8 kg
[~2017-07-28 09:29] MED LIST: DOCU-144 PO; EST1 PO; HYDR-2472 PO; HYDR-4100 PO; LEVO200T8 PO; ONDA4TAB5 PO; PRO20 PO
[2017-07-28] MEDS ORDERED: NACL 0.9% 1,000 ML IV ONE (09:37)
[2017-07-28 09:38] VITALS: BP_SYST 167
[2017-07-28] MEDS ORDERED: ONDANSETRON HCL 4 MG/2 ML VIAL IVP ONE (09:45)
[2017-07-28] MEDS ORDERED: HYDROmorphone 1 MG INJ. 1 MG/ML AMPUL IM ONE (09:45)
[2017-07-28 10:04] LABS: BASOPHILS # (AUTO) 0.1 K/uL (0.0-0.2); BASOPHILS % (AUTO) 0.7 % (0.0-2.0); EOSINOPHILS # (AUTO) 0.2 K/uL (0.0-0.4); EOSINOPHILS % (AUTO) 1.8 % (0.0-4.0); HEMATOCRIT 34.6 % (36-48); HEMOGLOBIN 11.5 g/dL (12.0-16.0); LYMPHOCYTES # (AUTO) 2.4 K/uL (1.0-5.5); LYMPHOCYTES % (AUTO) 19.7 % (20.5-51.5); MEAN CORPUSCULAR HEMOGLOBIN 29 pg (27-31); MEAN CORPUSCULAR HGB CONC 33 % (32-36); MEAN CORPUSCULAR VOLUME 87 fL (79.0-98.0); MONOCYTES # (AUTO) 1.1 K/uL (0.0-1.0); MONOCYTES % (AUTO) 9.4 % (1.7-9.3); NEUTROPHILS # (AUTO) 8.2 K/uL (1.8-7.7); NEUTROPHILS % (AUTO) 68.4 % (40.0-70.0); PLATELET COUNT (AUTO) 225 K/uL (130-430); RED BLOOD CELL COUNT(AUTO) 3.98 MIL/uL (4.2-6.2); RED CELL DISTRIBUTION WIDTH 12.7 % (9.0-15.0); WHITE BLOOD COUNT (AUTO) 12.1 K/uL (4.8-10.8)
[2017-07-28 10:16] LABS: CALCIUM 8.7 mg/dL (8.4-11.0); CREATININE 0.73 mg/dL (0.55-1.30); POTASSIUM 3.5 mmol/L (3.5-5.1)
[2017-07-28 10:21] LABS: ALBUMIN 3.3 g/dL (3.4-4.8); TOTAL BILIRUBIN 0.6 mg/dL (0.0-1.0)
[2017-07-28 10:22] LABS: INR 1.1 (0.8-1.2); PROTHROMBIN TIME 11.4 SECS (9.5-12.5)
[2017-07-28] MEDS ORDERED: HYDROmorphone 1 MG INJ. 1 MG/ML AMPUL IVP ONE (11:00)
[2017-07-28 11:32] LABS: BILIRUBIN,URINE NEGATIVE (NEGATIVE); BLOOD, URINE 1+ (NEGATIVE); CLARITY/URINE CLEAR (CLEAR); COLOR,URINE YELLOW (YELLOW); GLUCOSE,URINE NEGATIVE (NEGATIVE); KETONES,URINE NEGATIVE (NEGATIVE); LEUKOCYTE ESTERASE ,URINE NEGATIVE (NEGATIVE); NITRITE, URINE NEGATIVE (NEGATIVE); PROTEIN URINE NEGATIVE (NEGATIVE)
[2017-07-28 11:51] LABS: BACTERIA,URINE FEW /HPF (None Seen); MUCUS,URINE 1+ /LPF (None Seen); RBC,URINE 0-3 /HPF (0-3); WBC,URINE 0-3 /HPF (0-3)
[2017-07-28] MEDS: NACL 0.9% 1,000 ML IV SCH (13:39)
[2017-07-28] MEDS ORDERED: MORPHINE 2 MG/ML INJ. SYRINGE IVP PRN (13:45)
[2017-07-28] MEDS ORDERED: ACETAMINOPHEN 325 MG TABLET PO PRN (13:45)
[2017-07-28 14:26] VITALS: BP_SYST 172
[2017-07-28 15:20] LABS: FREE T4 (FREE THYROXINE) 1.4 ng/dL (0.6-1.6); PHOSPHORUS 2.9 mg/dL (2.7-4.5); THYROID STIMULATING HORMONE 1.53 uIu/mL (0.34-4.82)
[2017-07-28] MEDS ORDERED: BISACODYL 10 MG/SUPPOSITORY RC PRN (15:30)
[2017-07-28] MEDS ORDERED: POTASSIUM CHLORIDE 20 MEQ TAB.PRT.SR PO PRN (15:30)
[2017-07-28] MEDS ORDERED: MAGNESIUM CITRATE 300 ML ORAL SOLUTION PO ONE (15:30)
[2017-07-28] MEDS: HYDROmorphone 1 MG INJ. 1 MG/ML AMPUL IVP PRN ×2 (16:27→21:08)
[2017-07-28] MEDS: SIMETHICONE 80 MG TAB.CHEW PO PRN (18:25)
[2017-07-28 20:00] VITALS: BP_SYST 150
[2017-07-28] MEDS: LACTULOSE 20 GM/30 ML UDC PO SCH (21:00)
[2017-07-28] MEDS: DOCUSATE SODIUM 100 MG CAPSULE PO SCH (21:00)
[2017-07-28] MEDS: ONDANSETRON HCL 4 MG/2 ML VIAL IVP PRN (21:23)
[2017-07-28] MEDS: HYDROcodone/ACETAMIN 10-325 MG TAB PO PRN (23:47)
[2017-07-29] VITALS: BP_SYST 159
[2017-07-29] MEDS: ZOLPIDEM TARTRATE 5 MG TABLET PO PRN (00:24)
[2017-07-29] MEDS: LORazepam 2 MG/ML VIAL IVP PRN ×3 (01:23→22:11)
[2017-07-29 04:55] VITALS: BP_SYST 156
[2017-07-29] MEDS: HYDROmorphone 1 MG INJ. 1 MG/ML AMPUL IVP PRN ×4 (04:59→20:27)
[2017-07-29 07:36] LABS: BASOPHILS # (AUTO) 0.1 K/uL (0.0-0.2); BASOPHILS % (AUTO) 0.7 % (0.0-2.0); EOSINOPHILS # (AUTO) 0.3 K/uL (0.0-0.4); EOSINOPHILS % (AUTO) 3.9 % (0.0-4.0); HEMATOCRIT 34.2 % (36-48); HEMOGLOBIN 11.4 g/dL (12.0-16.0); LYMPHOCYTES # (AUTO) 2.2 K/uL (1.0-5.5); LYMPHOCYTES % (AUTO) 29.3 % (20.5-51.5); MEAN CORPUSCULAR HEMOGLOBIN 29 pg (27-31); MEAN CORPUSCULAR HGB CONC 33 % (32-36); MEAN CORPUSCULAR VOLUME 87 fL (79.0-98.0); MONOCYTES % (AUTO) 13.1 % (1.7-9.3); PLATELET COUNT (AUTO) 206 K/uL (130-430); RED BLOOD CELL COUNT(AUTO) 3.92 MIL/uL (4.2-6.2); RED CELL DISTRIBUTION WIDTH 12.6 % (9.0-15.0); WHITE BLOOD COUNT (AUTO) 7.6 K/uL (4.8-10.8)
[2017-07-29 08:27] LABS: CALCIUM 8.9 mg/dL (8.4-11.0); CREATININE 0.65 mg/dL (0.55-1.30); POTASSIUM 3.3 mmol/L (3.5-5.1)
[2017-07-29 08:36] LABS: ALBUMIN 2.9 g/dL (3.4-4.8); PHOSPHORUS 3.5 mg/dL (2.7-4.5); TOTAL BILIRUBIN 0.5 mg/dL (0.0-1.0)
[2017-07-29] MEDS: DOCUSATE SODIUM 100 MG CAPSULE PO SCH ×2 (09:00→20:27)
[2017-07-29] MEDS: LACTULOSE 20 GM/30 ML UDC PO SCH ×3 (09:00→20:27)
[2017-07-29 12:17] VITALS: BP_SYST 158
[2017-07-29] MEDS: HYDROcodone/ACETAMIN 10-325 MG TAB PO PRN ×2 (12:40→23:45)
[2017-07-29] MEDS: NACL 0.9% 1,000 ML IV SCH ×2 (12:41→22:59)
[2017-07-29] MEDS ORDERED: ESTRADIOL 1 MG TABLET (ESTRACE) PO ONE (14:15)
[2017-07-29] MEDS ORDERED: LEVOTHYROXINE SODIUM 0.1 MG TABLET PO ONE (14:15)
[2017-07-29] MEDS ORDERED: FLUoxetine HCL 20 MG CAPSULE (PROzac) PO ONE (14:30)
[2017-07-29 16:26] VITALS: BP_SYST 169
[2017-07-29 20:00] VITALS: BP_SYST 155
[2017-07-29 23:06] LABS: HEMOGLOBIN A1C 5.5 % (4.8-5.6)
[2017-07-29 23:50] VITALS: BP_SYST 151
[2017-07-30 01:23] LABS: T4 (THYROXINE) 13.9 ug/dL (4.5-12.0)
[2017-07-30 03:24] VITALS: BP_SYST 158
[2017-07-30] MEDS: HYDROmorphone 1 MG INJ. 1 MG/ML AMPUL IVP PRN (03:26)
[2017-07-30] MEDS: LEVOTHYROXINE SODIUM 0.1 MG TABLET PO SCH (05:49)
[2017-07-30] MEDS: LORazepam 2 MG/ML VIAL IVP PRN ×3 (05:55→20:13)
[2017-07-30 07:21] LABS: CALCIUM 8.9 mg/dL (8.4-11.0); CREATININE 0.71 mg/dL (0.55-1.30); POTASSIUM 3.8 mmol/L (3.5-5.1)
[2017-07-30 07:27] LABS: BASOPHILS # (AUTO) 0.1 K/uL (0.0-0.2); EOSINOPHILS # (AUTO) 0.4 K/uL (0.0-0.4); EOSINOPHILS % (AUTO) 5.1 % (0.0-4.0); HEMATOCRIT 34.8 % (36-48); HEMOGLOBIN 11.9 g/dL (12.0-16.0); LYMPHOCYTES # (AUTO) 2.1 K/uL (1.0-5.5); LYMPHOCYTES % (AUTO) 30.3 % (20.5-51.5); MEAN CORPUSCULAR HEMOGLOBIN 30 pg (27-31); MEAN CORPUSCULAR HGB CONC 34 % (32-36); MEAN CORPUSCULAR VOLUME 87 fL (79.0-98.0); MONOCYTES # (AUTO) 0.7 K/uL (0.0-1.0); NEUTROPHILS # (AUTO) 3.8 K/uL (1.8-7.7); NEUTROPHILS % (AUTO) 53.6 % (40.0-70.0); PLATELET COUNT (AUTO) 221 K/uL (130-430); RED BLOOD CELL COUNT(AUTO) 3.98 MIL/uL (4.2-6.2); RED CELL DISTRIBUTION WIDTH 12.6 % (9.0-15.0); WHITE BLOOD COUNT (AUTO) 7.1 K/uL (4.8-10.8)
[2017-07-30 07:46] LABS: ALBUMIN 2.8 g/dL (3.4-4.8); TOTAL BILIRUBIN 0.3 mg/dL (0.0-1.0)
[2017-07-30] MEDS: NACL 0.9% 1,000 ML IV SCH (08:00)
[2017-07-30] MEDS: LACTULOSE 20 GM/30 ML UDC PO SCH ×4 (09:00→20:12)
[2017-07-30 09:43] VITALS: BP_SYST 156
[2017-07-30] MEDS: ESTRADIOL 1 MG TABLET (ESTRACE) PO SCH (09:52)
[2017-07-30] MEDS: HYDROcodone/ACETAMIN 10-325 MG TAB PO PRN ×3 (09:52→20:13)
[2017-07-30] MEDS: DOCUSATE SODIUM 100 MG CAPSULE PO SCH ×2 (09:52→20:12)
[2017-07-30] MEDS: FLUoxetine HCL 20 MG CAPSULE (PROzac) PO SCH (09:52)
[2017-07-30 12:51] VITALS: BP_SYST 147
[2017-07-30 16:43] VITALS: BP_SYST 163
[2017-07-30] MEDS ORDERED: DIATR MEGLU/DIATRIZ SOD 30 ML SOLUTION PO ONE (17:10)
[2017-07-30] MEDS ORDERED: IOHEXOL 100 ML IV ONE (19:37)
[2017-07-30 20:00] VITALS: BP_SYST 155
[2017-07-30] MEDS: ZOLPIDEM TARTRATE 5 MG TABLET PO PRN (23:58)
[2017-07-31 00:05] VITALS: BP_SYST 148
[2017-07-31] MEDS: HYDROcodone/ACETAMIN 10-325 MG TAB PO PRN ×4 (02:42→20:11)
[2017-07-31] MEDS: LORazepam 2 MG/ML VIAL IVP PRN ×2 (02:42→13:56)
[2017-07-31] MEDS: LEVOTHYROXINE SODIUM 0.1 MG TABLET PO SCH (05:15)
[2017-07-31 07:16] LABS: ALBUMIN 2.8 g/dL (3.4-4.8); CREATININE 0.78 mg/dL (0.55-1.30); POTASSIUM 3.9 mmol/L (3.5-5.1); TOTAL BILIRUBIN 0.4 mg/dL (0.0-1.0)
[2017-07-31 07:20] LABS: EOSINOPHILS # (AUTO) 0.4 K/uL (0.0-0.4); LYMPHOCYTES # (AUTO) 1.6 K/uL (1.0-5.5); RED BLOOD CELL COUNT(AUTO) 4.19 MIL/uL (4.2-6.2)
[2017-07-31 07:26] LABS: BASOPHILS % (AUTO) 0.6 % (0.0-2.0); EOSINOPHILS % (AUTO) 4.9 % (0.0-4.0); HEMATOCRIT 36.4 % (36-48); HEMOGLOBIN 12.3 g/dL (12.0-16.0); LYMPHOCYTES % (AUTO) 20.4 % (20.5-51.5); MEAN CORPUSCULAR HEMOGLOBIN 29 pg (27-31); MEAN CORPUSCULAR HGB CONC 34 % (32-36); MEAN CORPUSCULAR VOLUME 87 fL (79.0-98.0); MONOCYTES # (AUTO) 0.8 K/uL (0.0-1.0); MONOCYTES % (AUTO) 10.6 % (1.7-9.3); NEUTROPHILS % (AUTO) 63.5 % (40.0-70.0); PLATELET COUNT (AUTO) 256 K/uL (130-430); RED CELL DISTRIBUTION WIDTH 12.4 % (9.0-15.0); WHITE BLOOD COUNT (AUTO) 7.8 K/uL (4.8-10.8)
[2017-07-31] MEDS: NACL 0.9% 1,000 ML IV SCH (08:19)
[2017-07-31 08:20] VITALS: BP_SYST 157
[2017-07-31 08:30] VITALS: BP_SYST 157
[2017-07-31] MEDS: DOCUSATE SODIUM 100 MG CAPSULE PO SCH ×2 (08:41→20:10)
[2017-07-31] MEDS: FLUoxetine HCL 20 MG CAPSULE (PROzac) PO SCH (08:41)
[2017-07-31] MEDS: LACTULOSE 20 GM/30 ML UDC PO SCH ×3 (08:43→20:10)
[2017-07-31] MEDS: ESTRADIOL 1 MG TABLET (ESTRACE) PO SCH (08:44)
[2017-07-31] MEDS ORDERED: MAGNESIUM CITRATE 300 ML ORAL SOLUTION PO ONE (09:15)
[2017-07-31] MEDS: ONDANSETRON HCL 4 MG/2 ML VIAL IVP PRN (10:25)
[2017-07-31] MEDS: DIPHENHYDRAMINE HCL 25 MG CAPSULE PO PRN ×2 (15:13→23:35)
[2017-07-31 20:00] VITALS: BP_SYST 160
[2017-07-31] MEDS: LORazepam 1 MG TABLET PO PRN (22:46)
[2017-07-31 23:24] VITALS: BP_SYST 165
[2017-08-01] MEDS: NACL 0.9% 1,000 ML IV SCH (00:59)
[2017-08-01] MEDS: ZOLPIDEM TARTRATE 5 MG TABLET PO PRN (01:04)
[2017-08-01] MEDS: SIMETHICONE 80 MG TAB.CHEW PO PRN (02:00)
[2017-08-01] MEDS: HYDROcodone/ACETAMIN 10-325 MG TAB PO PRN ×3 (02:06→16:16)
[2017-08-01] MEDS: LEVOTHYROXINE SODIUM 0.1 MG TABLET PO SCH (06:28)
[2017-08-01] MEDS: LORazepam 1 MG TABLET PO PRN ×2 (06:34→13:11)
[2017-08-01 08:35] VITALS: BP_SYST 157
[2017-08-01] MEDS: LACTULOSE 20 GM/30 ML UDC PO SCH ×2 (09:00→14:45)
[2017-08-01] MEDS: FLUoxetine HCL 20 MG CAPSULE (PROzac) PO SCH (10:12)
[2017-08-01] MEDS: DOCUSATE SODIUM 100 MG CAPSULE PO SCH (10:13)
[2017-08-01] MEDS: ESTRADIOL 1 MG TABLET (ESTRACE) PO SCH (10:13)
[2017-08-01 10:15] VITALS: BP_SYST 145
[2017-08-01 12:30] VITALS: BP_SYST 130
[2017-08-01 14:16] VITALS: BP_SYST 143
[2017-08-01 16:20] VITALS: BP_SYST 132
[2017-08-01 17:24] VITALS: BP_SYST 140
== END 2017-08-01 17:40 | disposition home or self-care (01) | DRG 251 ==
LOC: SED 09:29 → SMU 13:39
PROVIDERS: ADMIT Family Medicine; ATTEND Family Medicine
DX: R10.9 Unspecified abdominal pain (principal); E44.0 Moderate protein-calorie malnutrition; F33.2 Major depressive disorder, recurrent severe without psychotic features; K82.0 Obstruction of gallbladder; E03.9 Hypothyroidism, unspecified; E78.5 Hyperlipidemia, unspecified; F17.210 Nicotine dependence, cigarettes, uncomplicated; J06.9 Acute upper respiratory infection, unspecified; E66.9 Obesity, unspecified; K59.00 Constipation, unspecified; F41.9 Anxiety disorder, unspecified; Z90.710 Acquired absence of both cervix and uterus; Z90.49 Acquired absence of other specified parts of digestive tract; Z68.38 Body mass index [BMI] 38.0-38.9, adult
CPT/HCPCS: 36415; 74000-TC; 80053; 80061; 81000-TC; 81025; 82150-TC; 83036; 83690-TC; 83735-TC; 83880; 84100-TC; 84436; 84439; 84443-TC; 84479; 85025; 85610-TC; 85730-TC; 86710; 87081; 96361; 96374; 96375; 96376; 99285; J1170; J2060; J2270; J2405; J7030; Q0163; Q9964; Q9967

== ENCOUNTER 2017-08-05 12:29 | Emergency (ER) | payer MEDICAID ==
[~2017-08-05] VITALS: Ht 165.1 cm; Wt 104.8 kg
[2017-08-05 13:04] VITALS: BP_SYST 157
[2017-08-05 13:41] LABS: BASOPHILS # (AUTO) 0.1 K/uL (0.0-0.2); BASOPHILS % (AUTO) 0.7 % (0.0-2.0); EOSINOPHILS # (AUTO) 0.3 K/uL (0.0-0.4); EOSINOPHILS % (AUTO) 2.3 % (0.0-4.0); HEMATOCRIT 44.2 % (36-48); HEMOGLOBIN 14.5 g/dL (12.0-16.0); MEAN CORPUSCULAR HEMOGLOBIN 29 pg (27-31); MEAN CORPUSCULAR HGB CONC 33 % (32-36); MEAN CORPUSCULAR VOLUME 87 fL (79.0-98.0); MONOCYTES # (AUTO) 0.7 K/uL (0.0-1.0); NEUTROPHILS # (AUTO) 8.9 K/uL (1.8-7.7); PLATELET COUNT (AUTO) 386 K/uL (130-430); RED BLOOD CELL COUNT(AUTO) 5.06 MIL/uL (4.2-6.2); RED CELL DISTRIBUTION WIDTH 12.5 % (9.0-15.0)
[2017-08-05 13:55] LABS: CALCIUM 10.1 mg/dL (8.4-11.0); CREATININE 0.96 mg/dL (0.55-1.30); POTASSIUM 4.2 mmol/L (3.5-5.1)
[2017-08-05 14:03] LABS: ALBUMIN 3.8 g/dL (3.4-4.8); TOTAL BILIRUBIN 0.4 mg/dL (0.0-1.0)
[2017-08-05 15:25] LABS: BILIRUBIN,URINE 1+ (NEGATIVE); BLOOD, URINE 2+ (NEGATIVE); CLARITY/URINE HAZY (CLEAR); COLOR,URINE YELLOW (YELLOW); GLUCOSE,URINE NEGATIVE (NEGATIVE); KETONES,URINE TRACE (NEGATIVE); LEUKOCYTE ESTERASE ,URINE NEGATIVE (NEGATIVE); NITRITE, URINE NEGATIVE (NEGATIVE); PH,URINE 5.5 (5.0-8.0); PROTEIN URINE 1+ (NEGATIVE)
[2017-08-05 15:39] LABS: WBC,URINE 0-3 /HPF (0-3)
[2017-08-05 15:40] LABS: BACTERIA,URINE FEW /HPF (None Seen); CALCIUM OXALATE CRYSTALS,UR 0-10 /HPF (None Seen)
[2017-08-05] MEDS ORDERED: ONDANSETRON 4 MG ODT TAB PO ONE (16:00)
[2017-08-05] MEDS ORDERED: CIPROFLOXACIN HCL 500 MG TABLET PO ONE (17:15)
[2017-08-05 18:33] LABS: INFLUENZA A&B ANTIGEN SCREEN NEGATIVE FOR A & B (NEGATIVE); STREPTOCOCCUS A SCREEN (RAPID) NEGATIVE (NEGATIVE)
[2017-08-05 18:55] VITALS: BP_SYST 160
== END 2017-08-05 18:55 | disposition home or self-care (01) ==
LOC: SED 12:29
DX: N10 Acute pyelonephritis (principal); E03.9 Hypothyroidism, unspecified; F32.9 Major depressive disorder, single episode, unspecified; F41.9 Anxiety disorder, unspecified; Z90.49 Acquired absence of other specified parts of digestive tract; Z98.51 Tubal ligation status
CPT/HCPCS: 36415; 74176; 80053; 81000; 83605; 84443; 85025; 86403; 86710; 87040; 87081; 99284; Q0162

== ENCOUNTER 2017-09-08 09:24 | Emergency (ER) | payer MEDICAID ==
[~2017-09-08] VITALS: Ht 165.1 cm; Wt 104.3 kg
[2017-09-08 09:37] VITALS: BP_SYST 184
--- NOTE | 2017-09-08 09:44 | NUR ---
Patient to ER bed 5 to gown for evaluation. Side rails up. Report given to Jason DOTY.
--- NOTE | 2017-09-08 09:45 | NUR ---
Note hyacinth in EDM - 09/08/17 at 1027 by KAMILLE Pt complains of having rectal bleeding for the last week. Pt states she has been having diarrhea for the past week and in the beginning bowel movement had bright red blood in it. Pt states blood is currently dark red. Pt states she has bilateral flank pain. Pt states she has been feeling nauseous. No other injuries/complaints per patient or noted. at bedside.
[2017-09-08] MEDS ORDERED: DIPHENHYDRAMINE INJ 50 MG/ML VIAL IVP ONE (10:30)
[2017-09-08] MEDS ORDERED: PIPERACILLIN/TAZO 3.38 GM in NS 50 ML IV ONE (10:30)
[2017-09-08] MEDS ORDERED: MORPHINE 4 MG/ML INJ. SYRINGE IVP ONE (10:30)
--- NOTE | 2017-09-08 10:42 | NUR ---
Urine sample was obtained, sent to LAB.
[2017-09-08] MEDS ORDERED: MORPHINE SULFATE 10 MG/ML VIAL IVP ONE (10:45)
[2017-09-08 11:05] LABS: BASOPHILS # (AUTO) 0.1 K/uL (0.0-0.2); BASOPHILS % (AUTO) 0.7 % (0.0-2.0); EOSINOPHILS # (AUTO) 0.2 K/uL (0.0-0.4); EOSINOPHILS % (AUTO) 1.6 % (0.0-4.0); HEMATOCRIT 41.7 % (36-48); HEMOGLOBIN 13.8 g/dL (12.0-16.0); LYMPHOCYTES # (AUTO) 2.1 K/uL (1.0-5.5); LYMPHOCYTES % (AUTO) 16.3 % (20.5-51.5); MEAN CORPUSCULAR HEMOGLOBIN 28 pg (27-31); MEAN CORPUSCULAR HGB CONC 33 % (32-36); MEAN CORPUSCULAR VOLUME 85 fL (79.0-98.0); MONOCYTES # (AUTO) 0.5 K/uL (0.0-1.0); MONOCYTES % (AUTO) 4.1 % (1.7-9.3); NEUTROPHILS # (AUTO) 10.2 K/uL (1.8-7.7); NEUTROPHILS % (AUTO) 77.3 % (40.0-70.0); PLATELET COUNT (AUTO) 309 K/uL (130-430); RED BLOOD CELL COUNT(AUTO) 4.89 MIL/uL (4.2-6.2); RED CELL DISTRIBUTION WIDTH 13.1 % (9.0-15.0); WHITE BLOOD COUNT (AUTO) 13.1 K/uL (4.8-10.8)
[2017-09-08 11:06] LABS: BILIRUBIN,URINE NEGATIVE (NEGATIVE); BLOOD, URINE 1+ (NEGATIVE); CLARITY/URINE CLEAR (CLEAR); COLOR,URINE YELLOW (YELLOW); GLUCOSE,URINE NEGATIVE (NEGATIVE); KETONES,URINE NEGATIVE (NEGATIVE); LEUKOCYTE ESTERASE ,URINE NEGATIVE (NEGATIVE); NITRITE, URINE NEGATIVE (NEGATIVE); PROTEIN URINE TRACE (NEGATIVE); UROBILINOGEN,URINE 0.2 (0.2-1.0)
[2017-09-08] MEDS ORDERED: PIPERACILLIN/TAZOBACTAM 3.375 GM/VIAL (ZOSYN) IV ONE (11:09)
[2017-09-08 11:22] LABS: CALCIUM 9.7 mg/dL (8.4-11.0); CREATININE 1.02 mg/dL (0.55-1.30); POTASSIUM 3.3 mmol/L (3.5-5.1); PROTHROMBIN TIME 10.3 SECS (9.5-12.5)
--- NOTE | 2017-09-08 11:25 | NUR ---
Medication administered. Pt tolerated well. No adverse reactions noted.
[2017-09-08 11:27] LABS: ALBUMIN 3.7 g/dL (3.4-4.8); TOTAL BILIRUBIN 0.1 mg/dL (0.0-1.0)
--- NOTE | 2017-09-08 11:33 | NUR ---
Pt reports feeling nauseas. Dr. Fraire notified. Orders to be received.
[2017-09-08] MEDS ORDERED: ONDANSETRON HCL 4 MG/2 ML VIAL IVP ONE (11:45)
--- NOTE | 2017-09-08 11:49 | NUR ---
Zofran administered. Pt tolerated well. No adverse reactions noted.
[2017-09-08 12:01] VITALS: BP_SYST 134
--- NOTE | 2017-09-08 12:01 | NUR ---
Patient given written and verbal discharge instructions and verbalizes understanding. ER MD discussed with patient the results and treatment provided. Patient in stable condition. ID arm band removed. IV catheter removed intact and dressing applied, no active bleeding. Rx of Protonix and Scobey given. Patient educated on pain management and to follow up with PMD. Pain Scale 0. Opportunity for questions provided and answered.
== END 2017-09-08 12:01 | disposition home or self-care (01) ==
LOC: SED 09:24
DX: R10.84 Generalized abdominal pain (principal); K62.5 Hemorrhage of anus and rectum; E07.9 Disorder of thyroid, unspecified
CPT/HCPCS: 36415; 71045; 74176; 80053; 81003; 83605; 83690; 85025; 85610; 87040; 93005; 96365; 96375; 99285; J1200; J2270; J2405; J2543

== ENCOUNTER 2017-11-10 16:09 | Emergency (ER) | payer MEDICAID ==
[~2017-11-10] VITALS: Ht 165.1 cm; Wt 106.6 kg
[2017-11-10 16:19] VITALS: BP_SYST 190
[2017-11-10 17:05] LABS: BASOPHILS # (AUTO) 0.1 K/uL (0.0-0.2); BASOPHILS % (AUTO) 0.6 % (0.0-2.0); EOSINOPHILS # (AUTO) 0.2 K/uL (0.0-0.4); EOSINOPHILS % (AUTO) 1.8 % (0.0-4.0); HEMATOCRIT 40.7 % (36-48); HEMOGLOBIN 13.5 g/dL (12.0-16.0); LYMPHOCYTES # (AUTO) 1.7 K/uL (1.0-5.5); LYMPHOCYTES % (AUTO) 15.9 % (20.5-51.5); MEAN CORPUSCULAR HEMOGLOBIN 29 pg (27-31); MEAN CORPUSCULAR HGB CONC 33 % (32-36); MEAN CORPUSCULAR VOLUME 88 fL (79.0-98.0); MONOCYTES # (AUTO) 0.8 K/uL (0.0-1.0); MONOCYTES % (AUTO) 7.3 % (1.7-9.3); NEUTROPHILS % (AUTO) 74.4 % (40.0-70.0); PLATELET COUNT (AUTO) 328 K/uL (130-430); RED BLOOD CELL COUNT(AUTO) 4.61 MIL/uL (4.2-6.2); RED CELL DISTRIBUTION WIDTH 16.2 % (9.0-15.0); WHITE BLOOD COUNT (AUTO) 10.8 K/uL (4.8-10.8)
[2017-11-10 17:18] LABS: CALCIUM 9.2 mg/dL (8.4-11.0); CREATININE 0.9 mg/dL (0.55-1.30); POTASSIUM 3.2 mmol/L (3.5-5.1)
[2017-11-10 17:23] LABS: ALBUMIN 3.7 g/dL (3.4-4.8); TOTAL BILIRUBIN 0.3 mg/dL (0.0-1.0)
[2017-11-10 17:54] LABS: BILIRUBIN,URINE 1+ (NEGATIVE); BLOOD, URINE 3+ (NEGATIVE); CLARITY/URINE HAZY (CLEAR); COLOR,URINE YELLOW (YELLOW); GLUCOSE,URINE NEGATIVE (NEGATIVE); KETONES,URINE TRACE (NEGATIVE); LEUKOCYTE ESTERASE ,URINE NEGATIVE (NEGATIVE); NITRITE, URINE NEGATIVE (NEGATIVE); PH,URINE 5.5 (5.0-8.0); PROTEIN URINE 1+ (NEGATIVE)
[2017-11-10] MEDS ORDERED: HYDROcodone/ACETAMIN 7.5-325 MG TAB PO ONE (18:15)
[2017-11-10] MEDS ORDERED: POTASSIUM CHLORIDE 20 MEQ/PKT PACKET PO ONE (18:15)
[2017-11-10 18:20] VITALS: BP_SYST 160
[2017-11-10 18:21] LABS: BACTERIA,URINE MODERATE /HPF (None Seen); MUCUS,URINE 1+ /LPF (None Seen)
== END 2017-11-10 18:35 | disposition home or self-care (01) ==
LOC: SED 16:09
DX: K46.9 Unspecified abdominal hernia without obstruction or gangrene (principal); R03.0 Elevated blood-pressure reading, without diagnosis of hypertension; F41.9 Anxiety disorder, unspecified; Z90.49 Acquired absence of other specified parts of digestive tract; Z90.710 Acquired absence of both cervix and uterus
CPT/HCPCS: 36415; 80053; 81000-TC; 85025; 87086; 99285